=== PATIENT | male | born 1955 | race Caucasian/White ===

== ENCOUNTER 2019-09-06 10:41 | Inpatient (IN) ==
[2019-09-06] MEDS ORDERED: CeFAZolin Syr 2,000MG/20 ML 2,000 MG/20 ML SYRINGE IVPB ONE (10:59)
[2019-09-06] MEDS ORDERED: Albuterol 2.5 MG/3 ML NEBULIZER IH PRN (10:59)
[2019-09-06] MEDS ORDERED: Ondansetron 4 MG/2 ML VIAL IVP ONE (11:04)
[2019-09-06] MEDS ORDERED: Acetaminophen IV 1,000 MG/100 ML INFUS..BTL IVPB ONE (11:04)
[2019-09-06] MEDS ORDERED: *HR* Meperidine 25 MG/ML SYRINGE IVP PRN (11:04)
[2019-09-06] MEDS ORDERED: *HR* Promethazine 25 MG/ML VIAL IVP PRN ×2 (11:04→18:39)
[2019-09-06] MEDS: Ringers Solution, Lactated 1,000 ML IVC SCH ×3 (11:19→17:52)
[2019-09-06] MEDS ORDERED: *HR* Propofol 200 MG/20 ML VIAL IVP ONE ×3 (11:58→16:07)
[2019-09-06] MEDS ORDERED: *HR* FentaNYL (PF) 100 MCG/2 ML VIAL ONE ×2 (11:58→12:31)
[2019-09-06] MEDS ORDERED: Lidocaine -MPF 2% 2 ML VIAL ONE (11:58)
[2019-09-06] MEDS ORDERED: *HR* Midazolam HCl 2 MG/2 ML VIAL ONE (12:31)
[2019-09-06] MEDS ORDERED: Ethanol\\Acetic Acid\\Na Ace\\Ben 1,000 ML IRRIG.SOLN IR ONE ×2 (12:55→15:36)
[2019-09-06] MEDS ORDERED: Tranexamic Acid 1,000 MG/10 ML VIAL ONE (13:19)
[2019-09-06] MEDS ORDERED: EPHEDrine 50 MG/ML VIAL ONE (14:01)
[2019-09-06] MEDS: *HR* HYDROmorphone PF 0.5 MG/0.5 ML SYRINGE IVP PRN ×2 (16:39→16:49)
[2019-09-06] MEDS ORDERED: Ringer's Solution, Lactated 250 ML IV.SOLN IVC ONE (17:15)
[2019-09-06 17:37] LABS: Hematocrit 35.4 % (37.5-50.1); Hemoglobin 11.5 g/dL (12.9-16.9)
[2019-09-06] MEDS ORDERED: Albumin Human 5% 12.5 GM/250 ML IV.SOLN IVPB PRN (17:43)
[2019-09-06] MEDS ORDERED: Ringers Solution, Lactated 1,000 ML IVC ONE (18:16)
[2019-09-06] MEDS ORDERED: Naloxone 0.4 MG/ML INJ IVP PRN (18:39)
[2019-09-06] MEDS ORDERED: Ringers Solution, Lactated 1,000 ML IVC SCH (18:39)
[2019-09-06] MEDS ORDERED: MOM Conc 10 ML UD.LIQ PO PRN (18:39)
[2019-09-06] MEDS ORDERED: D5% in Water 1,000 ML IVC PRN (18:39)
[2019-09-06] MEDS ORDERED: Ondansetron 4 MG/2 ML VIAL IVP PRN (18:39)
[2019-09-06] MEDS ORDERED: Dextrose Gel 15 GM/37.5 ML TUBE PO PRN ×2 (18:39)
[2019-09-06] MEDS ORDERED: Sennosides 8.6 MG TABLET PO PRN (18:39)
[2019-09-06] MEDS ORDERED: *HR* Dextrose 50 % in Water (Syg) 50 ML SYRINGE IVP PRN (18:39)
[2019-09-06] MEDS: *HR* OxyCODONE Immed Rel 5 MG TABLET PO PRN (20:20)
[2019-09-06] MEDS: Ascorbic Acid 500 MG TABLET PO SCH (20:23)
[2019-09-06] MEDS: ceFAZolin 2,000 MG in 0.9 % Sodium Chloride 100 ML IVPB SCH (20:23)
[2019-09-06] MEDS: Insulin LISPRO 300 UNITS/3 ML VIAL SQ SCH ×2 (23:26)
[2019-09-06] MEDS: HYDROcodone BIT/Homatropine 5 MG TABLET PO PRN (23:31)
[2019-09-07] MEDS: *HR* OxyCODONE Immed Rel 5 MG TABLET PO PRN ×5 (01:04→23:50)
[2019-09-07 03:11] LABS: Basophils % 0.1 %; Hematocrit 26.5 % (37.5-50.1); Immature Granulocytes % 0.3 % (0-4); Lymphocytes # 0.7 K/mcL (0.6-4.6); Lymphocytes % 5.4 %; Mean Corpuscular Hemoglobin 35.4 pg (28.0-33.3); Mean Corpuscular Volume 104.3 fL (83.0-100.0); Mean Platelet Volume 10.4 fL (9.4-12.4); Monocytes # 1.2 K/mcL (0.0-1.3); Monocytes % 9.3 %; Neutrophils # 10.6 K/mcL (1.6-8.9); Platelet Count 153 K/mcL (140-400); Red Blood Count 2.54 M/mcL (4.19-5.50); Red Cell Distribution Width 12.5 % (11.5-14.5); Segmented Neutrophils % 84.9 %; White Blood Count 12.5 K/mcL (4.3-11.1)
[2019-09-07 03:28] LABS: BUN/Creatinine Ratio 15 (6-26); Blood Urea Nitrogen 10 mg/dL (8-23); Carbon Dioxide 27 mEq/L (23-29); Chloride 107 mEq/L (98-107); Glucose 176 mg/dL (70-105); Osmolality,Calculated 285 (280-300); Potassium 4.1 mEq/L (3.5-5.1); Sodium 136 mEq/L (136-145); eGFR For African Americans > 60 (> 60); eGFR For Non-African Americans > 60 (> 60)
[2019-09-07] MEDS: ceFAZolin 2,000 MG in 0.9 % Sodium Chloride 100 ML IVPB SCH (05:41)
[2019-09-07] MEDS ORDERED: tiZANidine 4 MG TABLET PO PRN (08:29)
[2019-09-07] MEDS: Multivit/Ca/Min/Fe/FA 1 TAB TABLET PO SCH (09:17)
[2019-09-07] MEDS: Gabapentin 100 MG CAPSULE PO SCH ×3 (09:18→19:57)
[2019-09-07] MEDS: Insulin LISPRO 300 UNITS/3 ML VIAL SQ SCH ×4 (09:26→20:04)
[2019-09-07] MEDS: Aspirin Enteric Coated 81 MG Tablet PO SCH (11:41)
[2019-09-07] MEDS: Ascorbic Acid 500 MG TABLET PO SCH ×2 (11:42→18:31)
[2019-09-07] MEDS: Nicotine 21 MG PATCH.TD24 TD SCH (15:04)
[2019-09-07] MEDS: HYDROcodone BIT/Homatropine 5 MG TABLET PO PRN (19:57)
[2019-09-08 01:27] LABS: Basophils % 0.1 %; Hematocrit 21.3 % (37.5-50.1); Immature Granulocytes % 0.4 % (0-4); Mean Corpuscular HGB Conc 33.8 g/dL (31.6-35.5); Mean Corpuscular Hemoglobin 34.4 pg (28.0-33.3); Mean Corpuscular Volume 101.9 fL (83.0-100.0); Mean Platelet Volume 10.4 fL (9.4-12.4); Monocytes # 1.4 K/mcL (0.0-1.3); Monocytes % 14.9 %; Neutrophils # 6.8 K/mcL (1.6-8.9); Platelet Count 106 K/mcL (140-400); Red Blood Count 2.09 M/mcL (4.19-5.50); Red Cell Distribution Width 12.4 % (11.5-14.5); Segmented Neutrophils % 73.6 %; White Blood Count 9.2 K/mcL (4.3-11.1)
[2019-09-08 01:28] LABS: Hemoglobin 7.2 g/dL (12.9-16.9)
[2019-09-08 01:46] LABS: BUN/Creatinine Ratio 12 (6-26); Blood Urea Nitrogen 7 mg/dL (8-23); Calcium 7.7 mg/dL (8.6-10.3); Carbon Dioxide 26 mEq/L (23-29); Chloride 103 mEq/L (98-107); Glucose 127 mg/dL (70-105); Osmolality,Calculated 274 (280-300); Potassium 3.6 mEq/L (3.5-5.1); Sodium 132 mEq/L (136-145); eGFR For African Americans > 60 (> 60); eGFR For Non-African Americans > 60 (> 60)
[2019-09-08] MEDS: HYDROcodone BIT/Homatropine 5 MG TABLET PO PRN (04:19)
[2019-09-08] MEDS: Insulin LISPRO 300 UNITS/3 ML VIAL SQ SCH ×4 (07:42→20:58)
[2019-09-08] MEDS: Ascorbic Acid 500 MG TABLET PO SCH ×2 (07:52→18:13)
[2019-09-08] MEDS: Multivit/Ca/Min/Fe/FA 1 TAB TABLET PO SCH (07:52)
[2019-09-08] MEDS: Aspirin Enteric Coated 81 MG Tablet PO SCH (07:53)
[2019-09-08] MEDS: Gabapentin 100 MG CAPSULE PO SCH ×3 (07:53→20:54)
[2019-09-08] MEDS: Nicotine 21 MG PATCH.TD24 TD SCH (07:53)
[2019-09-08] MEDS ORDERED: Iron Sucrose Complex 200 MG in 0.9 % Sodium Chloride 100 ML IVPB ONE (09:00)
[2019-09-08] MEDS: *HR* OxyCODONE Immed Rel 5 MG TABLET PO PRN ×3 (09:40→21:50)
[2019-09-09] MEDS: *HR* OxyCODONE Immed Rel 5 MG TABLET PO PRN ×4 (04:23→19:56)
[2019-09-09 09:23] LABS: Basophils % 0.2 %; Hematocrit 20.7 % (37.5-50.1); Hemoglobin 6.9 g/dL (12.9-16.9); Immature Granulocytes % 0.4 % (0-4); Lymphocytes # 1.1 K/mcL (0.6-4.6); Lymphocytes % 10.9 %; Mean Corpuscular HGB Conc 33.3 g/dL (31.6-35.5); Mean Corpuscular Hemoglobin 34.3 pg (28.0-33.3); Monocytes % 10.5 %; Neutrophils # 7.7 K/mcL (1.6-8.9); Platelet Count 125 K/mcL (140-400); Red Blood Count 2.01 M/mcL (4.19-5.50); Red Cell Distribution Width 12.5 % (11.5-14.5); White Blood Count 9.9 K/mcL (4.3-11.1)
[2019-09-09] MEDS: Nicotine 21 MG PATCH.TD24 TD SCH (09:24)
[2019-09-09] MEDS: Aspirin Enteric Coated 81 MG Tablet PO SCH (09:25)
[2019-09-09] MEDS: Gabapentin 100 MG CAPSULE PO SCH ×3 (09:25→19:57)
[2019-09-09] MEDS: Multivit/Ca/Min/Fe/FA 1 TAB TABLET PO SCH (09:25)
[2019-09-09] MEDS: Ascorbic Acid 500 MG TABLET PO SCH ×2 (09:25→16:11)
[2019-09-09] MEDS: Insulin LISPRO 300 UNITS/3 ML VIAL SQ SCH ×4 (09:26→19:57)
[2019-09-09 09:42] LABS: BUN/Creatinine Ratio 9 (6-26); Blood Urea Nitrogen 6 mg/dL (8-23); Calcium 8.1 mg/dL (8.6-10.3); Carbon Dioxide 28 mEq/L (23-29); Chloride 100 mEq/L (98-107); Glucose 142 mg/dL (70-105); Osmolality,Calculated 274 (280-300); Potassium 3.3 mEq/L (3.5-5.1); Sodium 132 mEq/L (136-145); eGFR For African Americans > 60 (> 60); eGFR For Non-African Americans > 60 (> 60)
[2019-09-09] MEDS ORDERED: 0.9 % Sodium Chloride 250 ML IVC SCH (10:45)
[2019-09-09] MEDS: HYDROcodone BIT/Homatropine 5 MG TABLET PO PRN (21:56)
[2019-09-10 01:40] LABS: Basophils % 0.3 %; Eosinophils % 0.4 %; Hemoglobin 7.2 g/dL (12.9-16.9); Immature Granulocytes % 0.4 % (0-4); Lymphocytes # 1.5 K/mcL (0.6-4.6); Lymphocytes % 20.8 %; Mean Corpuscular HGB Conc 34.3 g/dL (31.6-35.5); Mean Corpuscular Hemoglobin 34.8 pg (28.0-33.3); Mean Corpuscular Volume 101.4 fL (83.0-100.0); Mean Platelet Volume 9.9 fL (9.4-12.4); Monocytes % 13.6 %; Neutrophils # 4.7 K/mcL (1.6-8.9); Platelet Count 125 K/mcL (140-400); Red Blood Count 2.07 M/mcL (4.19-5.50); Red Cell Distribution Width 13.9 % (11.5-14.5); Segmented Neutrophils % 64.5 %; White Blood Count 7.3 K/mcL (4.3-11.1)
[2019-09-10 02:00] LABS: BUN/Creatinine Ratio 10 (6-26); Blood Urea Nitrogen 6 mg/dL (8-23); Calcium 7.8 mg/dL (8.6-10.3); Carbon Dioxide 26 mEq/L (23-29); Chloride 101 mEq/L (98-107); Glucose 112 mg/dL (70-105); Osmolality,Calculated 272 (280-300); Potassium 3.4 mEq/L (3.5-5.1); Sodium 132 mEq/L (136-145); eGFR For African Americans > 60 (> 60); eGFR For Non-African Americans > 60 (> 60)
[2019-09-10] MEDS: *HR* OxyCODONE Immed Rel 5 MG TABLET PO PRN ×2 (03:07→08:12)
[2019-09-10] MEDS: Nicotine 21 MG PATCH.TD24 TD SCH (07:56)
[2019-09-10] MEDS: Multivit/Ca/Min/Fe/FA 1 TAB TABLET PO SCH (07:58)
[2019-09-10] MEDS: Ascorbic Acid 500 MG TABLET PO SCH (07:58)
[2019-09-10] MEDS: Gabapentin 100 MG CAPSULE PO SCH (07:59)
[2019-09-10] MEDS: Insulin LISPRO 300 UNITS/3 ML VIAL SQ SCH (07:59)
[2019-09-10] MEDS: Aspirin Enteric Coated 81 MG Tablet PO SCH (07:59)
[2019-09-10 11:08] VITALS: BP 93/56
== END 2019-09-10 12:05 | DRG 470 ==
LOC: SAMDAY 10:41 → 3NENU 10:41
PROVIDERS: ADMIT Orthopaedic Surgery; ATTEND Orthopaedic Surgery